=== PATIENT | female | born 1955 | race Caucasian/White ===

== ENCOUNTER 2018-05-11 08:22 | Outpatient (CLI) | payer OTHER ==
[2018-05-11] MEDS ORDERED: Iopamidol 370 76% 100 ML VIAL ONE (08:26)
--- NOTE | 2018-05-11 10:37 | CT ---
CT THORAX WITH CONTRAST CT ABDOMEN WITH CONTRAST CT PELVIS WITH CONTRAST: 05/11/2018 HISTORY: A 63-year-old female with ICD-10 C54.1, staging of carcinosarcoma of the uterus. COMPARISON: None available. TECHNIQUE: IV iodinated contrast media: Isovue-370 70 mL Oral contrast media: Readi-Cat Single phase scans of thorax, abdomen, and pelvis. FINDINGS: The lungs are essentially clear. No evidence of pulmonary metastasis. Calcified granuloma in the le ft lower lobe. No pleural effusion or pneumothorax. No mediastinal or hilar lymphadenopathy. No th oracic aortic aneurysm. No pericardial effusion. No destructive osseous lesion. Extensive, reticular, ill defined soft tissue attenuation, thick, lace-like material present througho ut the ventral aspect of the intraperitoneal cavity, in the region of the omentum, involving midline and bilateral upper and bilateral lower quadrants. A small amount of free fluid, tracking along the bilateral paracolic gutters and spilling into the pelvic cavity, where there is a small to moderate a mount of free fluid. The uterus is approximately 8 cm transverse x 4.5 cm AP. What is assumed to be the endometrial cavit y is very expanded, with a large amount of mixed density fluid attenuation and soft tissue attenuatio n material. Decompressed urinary bladder. No hydronephrosis. A 2 cm parenchymal cyst at the right renal lower pole. No retroperitoneal, periportal, mesenteric, or iliac chain lymphadenopathy. Fatty liver. No hepatic metastasis. Cholecystectomy clips. Pancreas, adrenals, and spleen are normal. No small bowel dilation. Oral contrast material has reached the mid sigmoid colon. IMPRESSION: 1. Intraperitoneal metastatic spread of neoplasm: omental caking. 2. Small to moderate amount of free fluid in the pelvic cavity. 3. Abnormal appearance of uterus. See above description. 4. Hepatic steatosis. 5. No evidence of hematologic metastasis. KECIA Mcclain POS: [facility]
== END 2018-05-11 08:23 | disposition home or self-care (01) ==
LOC: CT 08:22
PROVIDERS: ATTEND Internal Medicine Medical Oncology
DX: C54.1 Malignant neoplasm of endometrium (principal); K76.0 Fatty (change of) liver, not elsewhere classified; C78.6 Secondary malignant neoplasm of retroperitoneum and peritoneum; R93.5 Abnormal findings on diagnostic imaging of other abdominal regions, including retroperitoneum
CPT/HCPCS: 71260; 74177

== ENCOUNTER 2018-09-24 11:21 | Outpatient (CLI) | payer OTHER ==
--- NOTE | 2018-09-24 11:49 | RAD ---
TWO VIEWS CHEST: DATE: 09/24/2018. PROVIDED CLINICAL HISTORY: Bronchitis. FINDINGS: Comparison 06/01/2018. Cardiac and mediastinal silhouette is unchanged in appearance. Right-sided imp lanted port is again seen. There is questioned right suprahilar nodular density. The lungs appear o therwise clear. No pleural fluid or pneumothorax apparent. IMPRESSION: Questioned right suprahilar nodular density. Consider correlation with chest CT. CODE T
== END 2018-09-24 11:22 | disposition home or self-care (01) ==
LOC: RAD 11:21
PROVIDERS: ATTEND Family Medicine
DX: J40 Bronchitis, not specified as acute or chronic (principal)
CPT/HCPCS: 71046

== ENCOUNTER 2018-10-02 13:48 | Outpatient (CLI) | payer OTHER ==
[~2018-10-02 13:48] MED LIST: Iopamidol 370 76% 100 ML VIAL ONE
--- NOTE | 2018-10-02 15:57 | CT ---
CT THORAX WITH IV CONTRAST: DATE: 10/02/2018. HISTORY: Abnormal chest x-ray. This is the followup evaluation. The patient complains of pain beneath the le ft breast. History of uterine cancer. COMPARISON: 05/11/2018 and chest x-ray on 09/24/2018. FINDINGS: Calcified granuloma is again seen at the right lung base. There are scattered peripherally located l inear densities within the lungs bilaterally likely related to mild chronic interstitial lung changes . No noncalcified pulmonary nodule or mass is seen and there is no pleural effusion. The finding on the prior examination may be related to prominence of the anterior 1st rib ending in s uperimposition of structures. A right subclavian MediPort catheter remains in place. There is a low-density nodule seen within the more inferior aspect of the left lobe of the thyroid gl and measuring 10 mm. No enlarged lymph nodes are seen by CT size criteria. Stable nonspecific lymph nodes are seen within the mediastinum. There are calcified subcarinal and left hilar lymph nodes again present. Vascular calcifications are seen in the thoracic aorta. Post cholecystectomy changes are noted. The previously noted small amount of ascites on the prior exam has resolved. Calcified granuloma in the left hepatic lobe as well as involving the spleen is again present. [facility] abdomen has a grossly normal CT appearance. The entire abdomen was not imaged on this exam . Midline scarring is seen in the upper abdomen anteriorly. IMPRESSION: 1. There is no pulmonary nodular mass seen to correspond to the abnormality on the recent chest x-ra y. Findings on the recent chest x-ray are likely related to superimposition of structures including prominence and irregularity of the costochondral junction of the anterior right 1st rib. 2. Evidence of prior granulomatous disease. 3. Vascular calcifications. 4. Cholecystectomy. POS: [facility]
== END 2018-10-02 13:49 | disposition home or self-care (01) ==
LOC: BICCT 13:48
PROVIDERS: ATTEND Family Medicine
DX: R91.8 Other nonspecific abnormal finding of lung field (principal); D71 Functional disorders of polymorphonuclear neutrophils; I70.0 Atherosclerosis of aorta; Z90.49 Acquired absence of other specified parts of digestive tract
CPT/HCPCS: 71260

== ENCOUNTER 2019-02-19 08:51 | Outpatient (CLI) | payer OTHER ==
--- NOTE | 2019-02-19 10:32 | CT ---
Contrast-enhanced CT images of chest, abdomen and pelvis. History of carcinosarcoma uterus, status post hysterectomy. Comparison made to previous CT from [facility] dated 11/21/2018 and [facility] dated 05/11/2018. CT CHEST: The patient's had placement of a right subclavian Mediport catheter. No definite evidence of lung parenchymal masses seen. The mediastinum is unremarkable. No evidence of axillary or hilar lymphadenopathy seen. CT abdomen pelvis: The liver and spleen are unremarkable. The gallbladder has been surgically removed . The spleen and pancreas are unremarkable. Adrenal glands and kidneys are unremarkable. The uterus is been surgically removed. No evidence of periaortic or pelvic lymphadenopathy seen. IMPRESSION: Hysterectomy Transcribed Date/Time: 02/19/2019 11:08 AM
== END 2019-02-19 08:52 | disposition home or self-care (01) ==
LOC: BICCT 08:51
PROVIDERS: ATTEND Internal Medicine Medical Oncology
DX: C54.1 Malignant neoplasm of endometrium (principal); D50.8 Other iron deficiency anemias; Z90.710 Acquired absence of both cervix and uterus
CPT/HCPCS: 71260; 74177; 82565

== ENCOUNTER 2019-05-06 08:10 | Outpatient (CLI) | payer OTHER ==
--- NOTE | 2019-05-06 12:00 | CT ---
EXAM: CT chest, abdomen, and pelvis with IV contrast: HISTORY: Malignant neoplasm of the endometrium. 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 History of prior cholecystectomy and hysterectomy. COMPARISON: 02/19/2019 as well as a prior study obtained from [facility] on 04/26/2019 FINDINGS: CT THORAX: Lungs: A calcified granuloma is again seen in the left lower lobe. Scattered areas of atelectasis are seen within the lungs bilaterally. No discrete pulmonary nodule or mass is identified. Pleura: There is a small right and [id number]-[id number] size left pleural effusions. Lymph nodes: There is a mildly prominent nonspecific subcarinal lymph node measuring 1.5 cm in short axis dimension. No additional enlarged mediastinal or hilar lymph nodes are seen by CT size criteria. There is no axillary lymphadenopathy. Mediastinum: Calcified mediastinal and left hilar lymph nodes are seen. Vascular calcifications are s een in the abdominal aorta. Chest wall: A right subclavian Mediport catheter is noted in place with tip in the distal SVC. CT ABDOMEN AND PELVIS: Liver: Calcified granuloma seen left hepatic lobe. Liver otherwise has a normal appearance without fo amara hepatic lesions seen. Gallbladder: Surgically absent.\ Pancreas: Within normal limits. Spleen:Splenic granulomata are identified. There is a very tiny subcentimeter enhancing lesion at the lateral aspect body of the spleen is too small to characterize. This could represent a small hemangioma. Adrenal glands: Within normal limits. Kidneys: An inferior pole right renal cyst is again seen. There is mild scarring involving the superi or pole right kidney as well as inferior pole left kidney. No hydronephrosis is seen. Urinary Bladder: Decompressed and not well evaluated. Reproductive organs: There is evidence of hysterectomy. Bowel: Small bowel is normal in caliber. A diverticulum is seen in the ascending colon. Adenopathy:No lymphadenopathy within the abdomen or pelvis. Peritoneum: There has been interval decrease in intraperitoneal free fluid noted on the prior exam. H owever, there is now loculated fluid seen throughout the abdomen which is seen adjacent to the liver, stomach, loops of small bowel and extending into the pelvis with a thin peripherally enhancing rim surrounding the fluid. There is evidence of mesenteric edema, but there is also linear and slight nodular stranding appearance within the mesentery of the abdomen greater anteriorly and latera lly on the left worrisome for peritoneal carcinomatosis including a larger soft tissue appearing nodule seen adjacent to the descending colon measuring 1.5 cm. Findings are likely related to periton eal carcinomatosis with associated malignant ascites. Abdominal wall: Midline infraumbilical scar is present in the subcutaneous soft tissues. There is mil d subcutaneous edema in the soft tissues anterior abdomen. Osseous structures: Degenerative changes are seen in the spine. No suspicious sclerotic or lytic osse ous lesions are identified. IMPRESSION: 1. Interval development of bilateral pleural effusions with small right and mxwqy-ct-vdadnvtq size le ft pleural effusion with associated passive atelectasis. 2. Evidence of peritoneal carcinomatosis and findings likely related to malignant ascites with locula raza fluid within the abdomen with associated thin peripheral enhancing rim. The amount of intraperitoneal free fluid noted on the prior exam has decreased. No focus of gas is seen within this collection to definitely suggest abscess formation. Clinical correlation suggested. 3. Hysterectomy. 4. Additional findings as described above.
[2019-05-06] MEDS ORDERED: Iopamidol 370 76% 100 ML VIAL ONE (16:26)
[2019-05-06] MEDS ORDERED: Iopamidol 370 76% 50 ML VIAL FS ONE (16:26)
== END 2019-05-06 08:11 | disposition home or self-care (01) ==
LOC: TBSIIMAG 08:10
PROVIDERS: ATTEND Internal Medicine Medical Oncology
DX: C54.1 Malignant neoplasm of endometrium (principal); D50.8 Other iron deficiency anemias; J90 Pleural effusion, not elsewhere classified; C78.6 Secondary malignant neoplasm of retroperitoneum and peritoneum; Z90.710 Acquired absence of both cervix and uterus
CPT/HCPCS: 71260; 74177; 82565; Q9967

== ENCOUNTER 2019-05-14 06:51 | Day surgery (SDC) | payer OTHER ==
[2019-05-13 15:42] VITALS: BMI 30.1
[2019-05-14 07:14] LABS: #Eosinphils 0.2 thou/uL (0.0-0.7); #Lymphocytes 0.7 thou/uL (1.20-3.40); #Monocytes 0.8 thou/uL (0.11-0.59); #Neutrophils 7.1 thou/uL (1.40-6.50); %Basophils 0.1 % (0.0-1.0); %Eosinophils 2.7 % (0.0-10.0); %Lymphocytes 7.8 % (21.0-51.0); %Monocytes 9.3 % (0.0-10.0); %Neutrophils 80.1 % (42.0-75.0); Hemoglobin 9.9 g/dL (12.0-16.0); Mean Corpuscular HGB CONC 32.3 g/dL (32.0-36.0); Mean Platelet Volume 7.5 fL (7.4-10.4); Platelet Count 335 thou/uL (130-400); RBC Distribution Width 13.7 % (11.5-14.5); White Blood Cell (WBC) Count 8.8 thou/uL (4.8-10.8)
[2019-05-14 07:19] LABS: INR-International Normal Ratio 1.3; PTT 30.8 SEC (22.9-36.1); Prothrombin Time 15.9 SEC (12.0-14.7)
--- NOTE | 2019-05-14 08:24 | ULT ---
Ultrasound-guided paracentesis: HISTORY: Endometrial cancer with omental metastatic disease and small amount of ascites. FINDINGS: Informed consent obtained prior to the procedure. Preprocedural imaging demonstrated intrap eritoneal free fluid. An area was marked in the right mid abdomen, and then meticulously prepped and draped in normal steri le fashion and anesthetized with 1% buffered lidocaine. With direct sonographic guidance, a 22-gauge needle was advanced into the abdomen. After the return o f fluid, the catheter was advanced, and the needle was removed. Approximately 11 mL of serosanguineous fluid was aspirated. The needle was removed, and hemostasis was achieved with direct pressure. A dry sterile dressing was placed. The patient tolerated the procedure well and without immediate complication. IMPRESSION: Technically successful ultrasound-guided paracentesis. Specimen was sent for labs as requested.
[2019-05-14 09:37] LABS: Body Fluid Source Ascites Body Fluid; Clarity Cloudy/Turbid (Clear); Tube # 1
[2019-05-14 09:38] LABS: BF Color Pink; RBC Background Count 0.001; RBC Count-Automated 33000 /cumm; WBC/NonHematic-Auto 549 /cumm
[2019-05-14 11:12] LABS: BF Segmented Neutrophils 16 %; Cell Count Non Hematic 37 %; Lymphocytes 47 %
== END 2019-05-14 08:00 | disposition home or self-care (01) ==
LOC: ULT 06:51
PROVIDERS: ATTEND Internal Medicine Medical Oncology
PROC: 0W9G3ZX Drainage of Peritoneal Cavity, Percutaneous Approach, Diagnostic (ICD-10-PCS; principal; 2019-05-14)
DX: C54.1 Malignant neoplasm of endometrium (principal); C78.6 Secondary malignant neoplasm of retroperitoneum and peritoneum; R18.0 Malignant ascites; E11.9 Type 2 diabetes mellitus without complications; I10 Essential (primary) hypertension; E03.9 Hypothyroidism, unspecified; D64.9 Anemia, unspecified; Z79.84 Long term (current) use of oral hypoglycemic drugs; Z79.899 Other long term (current) drug therapy
CPT/HCPCS: 36415; 49083; 85025; 85060; 85610; 85730; 88112; 88305; 89051

== ENCOUNTER 2019-06-13 08:56 | Day surgery (SDC) | payer OTHER ==
[2019-06-13] MEDS ORDERED: Acetaminophen 500 MG TAB PO SCH (09:30)
[2019-06-13] MEDS ORDERED: diphenhydrAMINE 25 MG CAP PO SCH (09:30)
[2019-06-13] MEDS ORDERED: Sodium Chloride 0.9% 20 ML ONE (10:30)
[2019-06-13 13:58] LABS: Hemoglobin 8.8 g/dL (12.0-16.0)
[2019-06-13 16:14] VITALS: BP 190/82; TEMP 97.7
== END 2019-06-13 16:18 | disposition home or self-care (01) ==
LOC: ONC/OP 08:56
PROVIDERS: ATTEND Internal Medicine Hematology & Oncology
PROC: 30233N1 Transfusion of Nonautologous Red Blood Cells into Peripheral Vein, Percutaneous Approach (ICD-10-PCS; principal; 2019-06-13)
DX: D64.9 Anemia, unspecified (principal); D69.6 Thrombocytopenia, unspecified
CPT/HCPCS: 36430; 85014; 85018; 86850; 86900; 86901; J1642; P9016; Q0163

== ENCOUNTER 2019-06-20 08:41 | Day surgery (SDC) | payer OTHER ==
[2019-06-19 17:27] VITALS: BMI 30.1
[2019-06-20 09:05] LABS: #Eosinphils 0.3 thou/uL (0.0-0.7); #Lymphocytes 0.6 thou/uL (1.20-3.40); #Monocytes 0.3 thou/uL (0.11-0.59); #Neutrophils 6.6 thou/uL (1.40-6.50); %Eosinophils 3.6 % (0.0-10.0); %Lymphocytes 7.7 % (21.0-51.0); %Monocytes 4.2 % (0.0-10.0); %Neutrophils 84.5 % (42.0-75.0); Hemoglobin 10.7 g/dL (12.0-16.0); Mean Corpuscular HGB CONC 32.3 g/dL (32.0-36.0); Mean Corpuscular Hemoglobin 29.6 pg (27.0-31.0); Mean Corpuscular Volume 91.7 fL (78.0-98.0); Mean Platelet Volume 7.9 fL (7.4-10.4); Platelet Count 235 thou/uL (130-400); RBC Distribution Width 15.6 % (11.5-14.5); Red Blood Cell (RBC) Count 3.62 mill/uL (4.20-5.40); White Blood Cell (WBC) Count 7.8 thou/uL (4.8-10.8)
[2019-06-20 09:19] LABS: INR-International Normal Ratio 1.2; PTT 39.5 SEC (22.9-36.1); Prothrombin Time 15.5 SEC (12.0-14.7)
--- NOTE | 2019-06-20 10:19 | ULT ---
Limited abdominal ultrasound: 06/20/2019 COMPARISON: 05/14/2019 HISTORY: 64-year-old female with malignancy, evaluate for ascites FINDINGS: Ultrasound of the abdomen/pelvis to evaluate for ascites was performed. There are a few tin y pockets of fluid, including in the lower midline abdomen measuring 8 mm in AP dimension, the left lower quadrant measuring 1.1 cm in AP dimension, and in the right upper quadrant adjacent to the live r measuring approximately 1.9 cm. There is not a significant amount of fluid to perform paracentesis. IMPRESSION: Trace free fluid in the abdomen/pelvis.
[2019-06-20 10:30] VITALS: BP 141/76; TEMP 97.4
== END 2019-06-20 10:12 | disposition home or self-care (01) ==
LOC: ULT 08:41
PROVIDERS: ATTEND Internal Medicine Hematology & Oncology
PROC: BW40ZZZ Ultrasonography of Abdomen (ICD-10-PCS; principal; 2019-06-20)
PROC: 0W9G3ZZ Drainage of Peritoneal Cavity, Percutaneous Approach (ICD-10-PCS; principal; 2019-06-20)
DX: R18.8 Other ascites (principal); C54.1 Malignant neoplasm of endometrium; D50.9 Iron deficiency anemia, unspecified; E11.9 Type 2 diabetes mellitus without complications; I10 Essential (primary) hypertension; E03.9 Hypothyroidism, unspecified
CPT/HCPCS: 36415; 76705; 85025; 85610; 85730

== ENCOUNTER 2019-07-01 15:21 | Outpatient (CLI) | payer OTHER ==
--- NOTE | 2019-07-01 15:51 | RAD ---
Chest 2 views HISTORY: Chest pain. COMPARISON: 09/24/2018. FINDINGS: Cardiac silhouette is unremarkable. Pulmonary vasculature upper limits of normal. Mediastin um is midline with a right subclavian Port-A-Cath. No confluent airspace consolidation, pneumothorax, or pleural fluid. IMPRESSION: No active cardiopulmonary abnormalities are demonstrated.
== END 2019-07-01 15:22 | disposition home or self-care (01) ==
LOC: RAD 15:21
PROVIDERS: ATTEND Family Medicine
DX: R07.89 Other chest pain (principal)
CPT/HCPCS: 71046

== ENCOUNTER 2019-08-14 09:43 | Outpatient (CLI) | payer OTHER ==
--- NOTE | 2019-08-18 14:08 | EKG ---
Test Reason : Blood Pressure : / mmHG Vent. Rate : 093 BPM Atrial Rate : 093 BPM P-R Int : 114 ms QRS Dur : 072 ms QT Int : 344 ms P-R-T Axes : 059 025 068 degrees QTc Int : 427 ms Normal sinus rhythm Normal ECG When compared with ECG of 31-MAY-2018 11:08, No significant change was found Confirmed by RODRIGUEZ CARDONA (2) on 08/18/2019 2:07:47 PM Referred By: HANNA Confirmed By:RODRIGUEZ CARDONA
== END 2019-08-14 09:44 | disposition home or self-care (01) ==
LOC: EKG 09:43
PROVIDERS: ATTEND Internal Medicine Medical Oncology
DX: Z51.11 Encounter for antineoplastic chemotherapy (principal); C54.1 Malignant neoplasm of endometrium
CPT/HCPCS: 93005; 93010

== ENCOUNTER 2019-08-31 00:34 | Inpatient (IN) | payer OTHER ==
[2019-08-31 01:13] LABS: #Eosinphils 0.1 thou/uL (0.0-0.7); #Lymphocytes 0.7 thou/uL (1.20-3.40); #Neutrophils 9.2 thou/uL (1.40-6.50); %Basophils 0.1 % (0.0-1.0); %Eosinophils 0.6 % (0.0-10.0); %Lymphocytes 6.1 % (21.0-51.0); %Monocytes 8.8 % (0.0-10.0); %Neutrophils 84.4 % (42.0-75.0); Hemoglobin 9.2 g/dL (12.0-16.0); Mean Corpuscular Hemoglobin 31.8 pg (27.0-31.0); Mean Corpuscular Volume 96.4 fL (78.0-98.0); Mean Platelet Volume 8.3 fL (7.4-10.4); Platelet Count 247 thou/uL (130-400); RBC Distribution Width 18.6 % (11.5-14.5); Red Blood Cell (RBC) Count 2.88 mill/uL (4.20-5.40); White Blood Cell (WBC) Count 10.9 thou/uL (4.8-10.8)
[2019-08-31 01:36] LABS: ALT (SGPT) 41 U/L (8-55); AST (SGOT) 47 U/L (5-34); Albumin 2.9 g/dL (3.4-4.8); Alkaline Phosphatase 175 U/L (40-110); Anion Gap 16 mmol/L (10-20); BUN (Urea Nitrogen) 29 mg/dL (9.8-20.1); Bilirubin, Total 0.3 mg/dL (0.2-1.2); Calc. Creatinine Clearance 0 mL/min (70-130); Calcium 9.6 mg/dL (7.8-10.44); Carbon Dioxide 20 mmol/L (23-31); Chloride 100 mmol/L (98-107); Estimated GFR-MDRD 40; Globulin 5.7 g/dL (2.4-3.5); Glucose 323 mg/dL (80-115); Lipase 54 U/L (8-78); Potassium 4.6 mmol/L (3.5-5.1); Protein, Total 8.6 g/dL (6.0-8.3); Sodium 131 mmol/L (136-145)
[2019-08-31] MEDS ORDERED: Ondansetron PF 4 MG/2 ML Vial ONE (01:50)
[2019-08-31] MEDS ORDERED: Morphine 4 MG/ML VIAL ONE (03:01)
[2019-08-31] MEDS ORDERED: Piperacillin/Tazobactam 3.375 GM VIAL ONE (03:01)
[2019-08-31 03:29] LABS: Bacteria/HPF None Seen HPF (None Seen); Bilirubin Negative (Negative); Blood, Urine Negative (Negative); Clarity Clear (Clear); Glucose, Urine (Dipstick) 150 mg/dL (Negative); Leukocyte Negative Leu/uL (Negative); Nitrite Negative (Negative); Protein, Urine (Dipstick) 100 mg/dL (Neg-Trace); RBC/HPF 0-3 HPF (0-3); Squamous Epithelial None Seen HPF (0-3); Urobilinogen Normal mg/dL (Less than 2)
[2019-08-31] MEDS ORDERED: Sodium Chloride 0.9% 1,000 ML IV SCH (04:55)
[2019-08-31] MEDS ORDERED: Ondansetron PF 4 MG/2 ML Vial IVP PRN ×2 (04:55→09:50)
[2019-08-31] MEDS ORDERED: Ondansetron ODT 4 MG TAB SL PRN (04:55)
[2019-08-31] MEDS ORDERED: Morphine 4 MG/ML VIAL SLOW IVP PRN (04:55)
[2019-08-31 05:21] VITALS: BMI 25.1
[2019-08-31] MEDS ORDERED: HYDROcodone/Acetaminophen 5/325 mg Tablet PO PRN ×2 (09:49)
--- NOTE | 2019-08-31 09:49 | CT ---
PRELIMINARY REPORT/[facility]/EMERGENCY AFTER HOURS PROCEDURE: Receipt of this report by the clinical staff was confirmed with KVNG KEY MD by Neelima Jiang on Aug 31, 2019 02:29:00 HEADWAITRESS. Addendum electronically signed by Neelima Jiang on August 31, 2019 2:29:08 AM HEADWAITRESS EXAM: CT ABDOMEN PELVIS W CON HISTORY: ABD PAIN VOMITING ON IMMUNOTHERAPY FOR CANCER COMPARISON: None FINDINGS: Centrally calcified pulmonary nodule within the posterior lateral left lung base. No pleural effusio n. The pericardium is normal. Postsurgical changes of prior laparoscopic cholecystectomy. Periportal edema. No solid or cystic hepatic mass lesion. The portal system is patent. Splenic calcifications. Pancreatic parenchyma is normal, without ductal dilatation. Left adrenal nodularity. Right lower pole simple renal cyst. No renal or ureteral stone, or sequelae thereof. The bladder is decompressed. No bowel obstruction. Fat stranding and soft tissue nodularity throughout the anterior peritoneum. Several prominent mesenteric lymph nodes. Retroperitoneal/periaortic lymphadenopathy. 4.9 x 3.1 x 7.3 cm focal fluid collection extending inferiorly from the inferior tip of the right hep atic lobe, with thin, incomplete enhancing rim. There is a second focal fluid collection directly posterior, which measures 1.6 x 1.7 x 4.1 cm. Also with thin, incomplete rim. Vascular calcifications of the abdominal aorta, without aneurysm or dissection. No acute osseous abnormality. IMPRESSION: 1. 2 focal fluid collections within the right hemiabdomen, both of which demonstrate thin, incomplet e rim enhancement. These findings may represent early/forming abscesses. 2. Peritoneal stranding and nodularity, worrisome for pseudomyxoma peritonei. 3. Pathologically enlarged retroperitoneal lymphadenopathy. 4. Periportal edema. ELECTRONICALLY SIGNED BY: Jhoana Snow MD Aug 31, 2019 2:20:41 AM HEADWAITRESS This report is intended for review by the ordering physician only, in accordance of law. If you recei ve this report in error, please call [facility] at [phone]. FINAL REPORT EMERGENCY AFTER HOURS CT ABDOMEN AND PELVIS WITH CONTRAST: FINDINGS/IMPRESSION: I agree with the findings and impression given in the preliminary report per [facility] physici an. 1. There are two small fluid collections just beneath the right lobe of the liver. 2. There is nodularity of the mesentery concerning for peritoneal carcinomatosis.
[2019-08-31] MEDS ORDERED: Acetaminophen 325 MG TAB PO PRN (09:50)
[2019-08-31] MEDS ORDERED: Ondansetron ODT 8 MG TAB PO PRN (09:51)
[2019-08-31] MEDS ORDERED: Dextrose 50% Abboject 50 ML SYRINGE SLOW IVP PRN (11:44)
[2019-08-31] MEDS ORDERED: Dextrose 5% in Water 1,000 ML IV PRN (11:44)
[2019-08-31] MEDS: HumaLOG 300 UNITS/3 ML VIAL SC PRN ×2 (12:40→17:28)
--- NOTE | 2019-08-31 13:17 | HP ---
PRIMARY CARE PHYSICIAN: Gasper Grace MD CHIEF COMPLAINT: Abdominal pain. HISTORY OF PRESENT ILLNESS: Ms. Mittal is a pleasant 64-year-old lady, who was seen at [facility] on August 31, 1019. In April 2018, she was diagnosed with gastric cancer. She underwent 3 cycles of chemotherapy followed by surgery on August 10, 2018. This was followed by 3 more cycles of chemotherapy. She was in remission at the end of October. In March, she was in [facility] when she had abdominal pain. She was found to have ascites. She was subsequently found to have sarcoma. She was treated with chemotherapy at [facility]. She was then subsequently started on immunotherapy for failure with chemotherapy. She was started on lenvatinib. This was followed by development of mucositis. She stopped it for 1 week and restarted it 3 days ago. She reports that she is able to tolerate diet better. Yesterday, she developed abdominal pain. She describes it as in the area right below the epigastric region, nonradiating, dull ache, 7/10 at its worst, no known aggravating or relieving factors. She also reports similar pains over the right and left lower quadrants yesterday. By the time I saw her, the pain was better. She reports vomiting once yesterday. Her last bowel movement was last night. The development of abdominal pain was preceded by 2 days of dry cough. She reports generalized weakness secondary to inability to tolerate diet. Please note that when she resumed lenvatinib, it was at half the usual dose. She presented to the emergency room. In the emergency room, she had a CT scan of the abdomen. There was a question of intraabdominal abscess. She was started on Zosyn. REVIEW OF SYSTEMS: All systems were reviewed and found to be negative except for the pertinent positives mentioned above. PAST MEDICAL HISTORY: Gastric cancer, diabetes mellitus, and hypothyroidism. PAST SURGICAL HISTORY: Hysterectomy, omentectomy, and surgery for gastric cancer. SOCIAL HISTORY: The patient denies tobacco use, alcohol use, or recreational drug use. FAMILY HISTORY: Significant for stroke in both parents. ALLERGIES: NO KNOWN DRUG ALLERGIES. CURRENT MEDICATIONS: 1. Vitamin D 2000 units daily. 2. Eligen B12 tablet 1 tablet daily. 3. Dexamethasone Elixir 0.5 mg daily. 4. Iron 325 mg daily. 5. Lenvatinib 10 mg daily. 6. Levothyroxine 88 mcg daily. 7. Janumet XR mg daily. 8. Zofran 8 mg p.o. q.6 hours p.r.n. PHYSICAL EXAMINATION: GENERAL: On examination, Ms. Mittal is awake and alert, not in acute distress. VITAL SIGNS: Blood pressure is 158/81, pulse 87, respiratory rate 19, and oxygen saturation 99% on room air. She is afebrile. EYES: No scleral icterus. No conjunctival pallor. ENT: Moist mucosal membranes. No oropharyngeal erythema or exudates. NECK: Supple, nontender. Trachea is midline. RESPIRATORY: Accessory muscles of breathing are not active. Chest wall movements are symmetric bilaterally. Lungs are clear to auscultation without wheeze, rhonchi, or crepitations. CARDIOVASCULAR: S1 and S2 are heard, regular. Peripheral pulses palpable. ABDOMEN: Soft, nontender. Bowel sounds are heard. NEUROLOGIC: Cranial nerves 2 through 12 are intact. MUSCULOSKELETAL: The patient is moving all 4 extremities. SKIN: No rashes. LYMPHATIC: No cervical lymphadenopathy. PSYCHIATRIC: Normal mood. Normal affect. The patient is oriented to person, place, and time. LABORATORY DATA AND INVESTIGATIONS: Reviewed. She has hyponatremia with sodium 131, normal potassium, elevated blood urea nitrogen of 29, elevated creatinine of 1.33, creatinine was 1.56 on August 20, 2019, normal calcium, normal total bilirubin, AST mildly elevated at 47, normal ALT, alkaline phosphatase is elevated at 175 and it was 154 on August 20, 2019, normal lipase of 54. Mild leukocytosis of 10,900, of which 84% are neutrophils; normocytic anemia with hemoglobin 9.2; and normal platelet count. Urinalysis is negative for nitrite and leukocyte esterase. CT scan of the abdomen and pelvis with contrast showed 2 focal fluid collections within the right km-abdomen, both of which demonstrate thin, incomplete rim enhancement. The radiologist feels these findings may represent early/forming abscesses. She also had peritoneal stranding and nodularity, worrisome for pseudomyxoma peritonei. She had pathologically enlarged retroperitoneal lymphadenopathy and periportal edema. ASSESSMENT AND PLAN: Ms. Mittal is a pleasant 64-year-old lady, who was seen at [facility] on August 31, 2019. Her problem list includes: 1. Abdominal pain: The pain is almost resolving. There was concern raised regarding whether she had intraabdominal abscesses. I discussed her case with her oncologist. It was felt that the CT scan of the abdomen findings was more sales and merchandising representative of disease progression than infection. I will stop the antibiotics and observe. 2. Diabetes mellitus, type 2: We will start Ms. Mittal on Accu-Cheks and insulin sliding scale. 3. Chronic kidney disease, stage 3: Stable. 4. Hypothyroidism: Continue Synthroid. 5. Gastric malignancy: Continue lenvatinib. LEVEL OF RISK: Moderate. LEVEL OF COMPLEXITY: Moderate. Many thanks for allowing me to participate in your patient's care. Please feel free to contact me with any questions or concerns. Job ID: [id number]
--- NOTE | 2019-09-01 01:20 | CON ---
DATE OF CONSULTATION: HISTORY OF PRESENT ILLNESS: The patient is a 64-year-old female from [place] with history of carcinosarcoma of endometrium. She had stage IV disease at the time of diagnosis. She has been treated with neoadjuvant chemotherapy followed by hysterectomy which rendered her clinically disease-free. However, she returned about 6 months ago in peritoneal cavity with ascites and peritoneal masses. She was treated with Doxil and Avastin to which she initially responded. However, she progressed again and about 3 weeks ago she was started on Keytruda and lenvatinib. Lenvatinib dose had to be reduced because of severe mucositis. Currently, she is on 10 mg of lenvatinib a day. The patient developed level 7 epigastric area pain last night and also had one episode of vomiting. She was admitted through the emergency room and was given 4 mg of morphine. This led to resolution of her pain. However, she developed mental symptoms following morphine. This morning, she is not having any pain, but she still has poor appetite. PHYSICAL EXAMINATION: GENERAL: The patient is alert and oriented. She appears chronically ill. VITAL SIGNS: Blood pressure 150/81, pulse 87, respirations 19. HEENT: Unremarkable. LYMPH: There is no peripheral lymphadenopathy in cervical, supraclavicular, axillary, or inguinal area. CHEST: Clear to percussion and auscultation. HEART: Regular rhythm, S1, S2. ABDOMEN: Soft. Bowel sounds appear decreased. There is very mild tenderness in the epigastric area. EXTREMITIES: Without pedal edema. LABORATORY DATA: CBC showed WBC of 10,900 with hemoglobin 9.2, and platelet count of 247,000. Differential showed 84.4% neutrophils, 6.1% lymphocytes. Chemistry profile was remarkable for sodium 121, creatinine of 0.33, glucose 323. AST 47, alkaline phosphatase 175, total protein 8.6, with globulin of 5.7. CT scan of the abdomen was discussed with Dr. Pleitez. He felt that overall ascitic fluid is diminished compared to the study in the April. There were areas of loculated ascites. The peritoneal nodules appear to be more prominent and there might be a few new nodules. ASSESSMENT AND RECOMMENDATION: Most likely her abdominal pain is related to peritoneal carcinomatosis. I think she should be observed for a day or two off antibiotics. If she does not develop any fever, she can be discharged home on oral pain medicine such as [place] 5/325 one or two q.4 hours p.r.n. Lenvatinib can be resumed, but she will continue treatment in the office next week. Job ID: [id number]
[2019-09-01 05:48] LABS: #Eosinphils 0.4 thou/uL (0.0-0.7); #Lymphocytes 1.1 thou/uL (1.20-3.40); #Monocytes 0.9 thou/uL (0.11-0.59); #Neutrophils 6.2 thou/uL (1.40-6.50); %Basophils 0.1 % (0.0-1.0); %Eosinophils 4.2 % (0.0-10.0); %Monocytes 10.8 % (0.0-10.0); %Neutrophils 71.9 % (42.0-75.0); Mean Corpuscular HGB CONC 31.7 g/dL (32.0-36.0); Mean Corpuscular Hemoglobin 31.2 pg (27.0-31.0); Mean Corpuscular Volume 98.4 fL (78.0-98.0); Mean Platelet Volume 8.1 fL (7.4-10.4); Platelet Count 213 thou/uL (130-400); RBC Distribution Width 18.6 % (11.5-14.5); Red Blood Cell (RBC) Count 2.56 mill/uL (4.20-5.40); White Blood Cell (WBC) Count 8.6 thou/uL (4.8-10.8)
[2019-09-01 06:16] LABS: Anion Gap 12 mmol/L (10-20); BUN (Urea Nitrogen) 20 mg/dL (9.8-20.1); Calc. Creatinine Clearance 42 mL/min (70-130); Calcium 8.6 mg/dL (7.8-10.44); Carbon Dioxide 22 mmol/L (23-31); Chloride 105 mmol/L (98-107); Estimated GFR-MDRD 45; Glucose 136 mg/dL (80-115); Potassium 4.1 mmol/L (3.5-5.1); Sodium 135 mmol/L (136-145)
[2019-09-01] MEDS: HumaLOG 300 UNITS/3 ML VIAL SC PRN ×2 (06:24→12:39)
[2019-09-01 07:50] VITALS: TEMP 98.5
[2019-09-01] MEDS ORDERED: JANUMET PO SCH (08:00)
[2019-09-01] MEDS ORDERED: SITAGLIPTIN PHOS PO SCH (08:00)
[2019-09-01] MEDS ORDERED: METFORMIN HCL PO SCH (08:00)
[2019-09-01] MEDS ORDERED: DEXAMETHASONE 0.5 MG PO SCH (09:00)
[2019-09-01] MEDS ORDERED: Enoxaparin Sodium 40 MG/0.4 ML SYRINGE SC SCH (09:00)
[2019-09-01] MEDS ORDERED: [UNRECOGNIZED DRUG - OTHER] PO SCH (09:00)
[2019-09-01] MEDS ORDERED: LENVATINIB MESYLATE 10 MG PO SCH ×2 (09:00)
[2019-09-01] MEDS ORDERED: Levothyroxine Sodium 88 MCG TAB PO SCH (09:00)
[2019-09-01] MEDS ORDERED: Non-Formulary Item 1 EACH (Cholecalciferol (Vitamin D3) [Vitamin D] 2,000 UNIT) PO SCH (09:00)
[2019-09-01] MEDS ORDERED: CYANOCOBALAMIN PO SCH (09:00)
[2019-09-01] MEDS ORDERED: Ferrous Sulfate 325 MG TAB PO SCH (09:00)
[2019-09-01] MEDS ORDERED: FERROUS SULFATE PO SCH (09:00)
[2019-09-01] MEDS ORDERED: Losartan 25 MG TAB PO SCH (12:00)
[2019-09-01 14:22] VITALS: BP 150/72
--- NOTE | 2019-09-01 23:51 | DIS ---
DATE OF ADMISSION: 08/31/2019 DATE OF DISCHARGE: 09/01/2019 PRIMARY CARE PROVIDER: Dr. Gaspre Grace. DISCHARGE DIAGNOSES: 1. Abdominal pain. 2. Abdominal pain, most likely secondary to peritoneal carcinomatosis. 3. Hyponatremia. 4. Chronic kidney disease stage 3. CONDITION OF THE PATIENT ON THE DAY OF DISCHARGE: Stable. I assessed Ms. Mittal on the day of discharge. She denies any chest pain or shortness of breath. Vital signs are stable. S1 and S2 are heard, regular. Lungs are clear to auscultation bilaterally. CONSULTATIONS DURING THIS HOSPITALIZATION: Oncology, Dr. Ramey. HOSPITAL COURSE: Ms. Mittal is a pleasant 64-year-old lady who was admitted to [facility] on 09/01/2019, for abdominal pain secondary to peritoneal carcinomatosis. She was seen by Oncology Service. Her pain resolved. She is being discharged home in a stable condition. Blood pressures were elevated during this hospitalization. Blood sugars were also elevated. She has been advised to check her blood pressure, heart rate, and blood sugars 3 times a day and show the readings to primary care provider. Many thanks for allowing me to participate in your patient's care. Please feel free to contact me with any questions or concerns. On the day of discharge, she has sodium 135, potassium 4.1, creatinine 1.20, white count 8600, hemoglobin 8.0, and platelet count 213,000. DIET: Diabetic. ACTIVITY: As tolerated. DISCHARGE DESTINATION: Home. TIME SPENT: Total amount of time spent coordinating this discharge: 18 minutes. No change was made to her pre-admission home medications, as dictated in my history and physical note dated 08/31/2019. Job ID: [id number] [facility]
[2019-09-02] MEDS ORDERED: Losartan 25 MG TAB PO SCH (09:00)
== END 2019-09-01 14:25 | disposition home or self-care (01) | DRG 375 ==
LOC: ERS 00:34 → T4-A 05:04
PROVIDERS: ADMIT Emergency Medicine; ATTEND Emergency Medicine
DX: C78.6 Secondary malignant neoplasm of retroperitoneum and peritoneum (principal); E87.1 Hypo-osmolality and hyponatremia; C16.9 Malignant neoplasm of stomach, unspecified; N18.3 Chronic kidney disease, stage 3 (moderate); E11.65 Type 2 diabetes mellitus with hyperglycemia; E11.22 Type 2 diabetes mellitus with diabetic chronic kidney disease; E03.9 Hypothyroidism, unspecified; Z90.710 Acquired absence of both cervix and uterus; Z79.899 Other long term (current) drug therapy; Z79.890 Hormone replacement therapy; Z79.84 Long term (current) use of oral hypoglycemic drugs
CPT/HCPCS: 36415; 36416; 74177; 80048; 80053; 81003; 81015; 83690; 85025; 96361; 96365; 96366; 96375; J2270; J2405; J2543; J8540